=== PATIENT | female | born 1970 | race Caucasian/White ===

== ENCOUNTER 2016-10-21 21:08 | Emergency (ER) | payer OTHER ==
[~2016-10-21] VITALS: Ht 167.6 cm; Wt 75.4 kg
[~2016-10-21 21:08] MED LIST: AMITIZA24 MICROGR PO; BENICAR HCT 201 EACH PO; DESYREL12.5 MG PO; EFFEXOR75 MG PO; FENOFIBRATE40 MG PO; HYDROCHLOROTH12.5 MG PO; KEFLEX500 MG PO; METHADONE 22 MG/1 ML PO; METHADOSE10 MG/1 ML PO; MOBIC15 MG PO; NAPROXEN500 M2 PO; PREDNISONE10 MG PO; PRISTIQ50 MG PO; PROMETHAZINE HC25 M1 PO; SUBOXONE 8 M1 TABLET SL; ZESTRIL20 MG PO; ZOFRAN ODT4 MG PO; ZOLOFT100 MG PO; ZYRTEC10 M2 PO
[2016-10-21 22:02] LABS: HEMATOCRIT 48.1 % (36.0-46.0); MCH 29.7 PG (29.0-34.0); MCHC 34.3 G/DL (30.0-36.0); MCV 86.5 FL (83-99); MEAN PLAT.VOLUME 8.9 uM^3 (9.5-12.4); PLATELET COUNT 344 K/uL (156-360); RBC DIS.WIDTH-CV 12.4 % (11.8-14.6); RBC DIS.WIDTH-SD 39.3 % (39-53); RED BLOOD COUNT 5.56 M/uL (3.80-5.20); WHITE BLOOD COUNT 10.7 K/uL (4.1-10.2)
[2016-10-21 22:12] LABS: ADD MIUA? YES; BILIRUBIN NEGATIVE; BLOOD SMALL; COLOR YELLOW ((YELLOW)); GLUCOSE (STRIP) NEGATIVE; KETONES NEGATIVE; LEUKOCYTES NEGATIVE; NITRITE NEGATIVE; PROTEIN (STRIP) NEGATIVE; SPECIFIC GRAVITY 1.023 (1.000-1.030); UROBILINOGEN 0.2 MG/DL (0.2-1.0)
[2016-10-21 22:16] LABS: CHLORIDE 103 mEq/L (99-109); POTASSIUM 3.3 mEq/L (3.7-5.4); SODIUM 139 mEq/L (136-147)
[2016-10-21 22:18] LABS: GLUCOSE 165 mg/dL (70-99)
[2016-10-21 22:19] LABS: ANION GAP 13 MEQ/L (2-14)
[2016-10-21 22:20] LABS: TOTAL BILIRUBIN 0.2 mg/dL (0.0-1.0)
[2016-10-21 22:21] LABS: ALKALINE PHOSPHATASE 82 IU/L (3-129)
[2016-10-21 22:22] LABS: GFR ESTIMATE (CALCULATED) > 59 mL/min/
[2016-10-21 22:23] LABS: UREA NITROGEN (BUN) 17 mg/dL (9-23)
[2016-10-21 22:25] LABS: CREATINE KINASE 27 IU/L (1-294)
[2016-10-21 22:32] LABS: QUANTITATIVE HCG < 4.0 MIU/ML
[2016-10-21 22:35] LABS: BACTERIA RARE /HPF; EPITHELIAL CELLS 1+ /HPF; MUCUS TRACE /LPF; UCUL ADDED? NO
[2016-10-21] MEDS ORDERED: INDOCIN50 MG PO (23:18)
[2016-10-22] MEDS ORDERED: SIMVASTATIN20 MG PO (01:01)
[2016-10-22 01:09] VITALS: BP 142/96
== END 2016-10-22 01:11 | disposition home or self-care (01) ==
LOC: EME 21:08
DX: L40.50 Arthropathic psoriasis, unspecified (principal); I10 Essential (primary) hypertension; R53.83 Other fatigue; T38.0X5A Adverse effect of glucocorticoids and synthetic analogues, initial encounter; R73.9 Hyperglycemia, unspecified; R53.1 Weakness; E87.6 Hypokalemia; G89.29 Other chronic pain
CPT/HCPCS: 80053; 81003; 82550; 84702; 85027; 99281; 99285; J1885; J7030

== ENCOUNTER 2016-12-03 20:11 | Emergency (ER) | payer OTHER ==
[~2016-12-03] VITALS: Ht 167.6 cm; Wt 78.3 kg
[~2016-12-03 20:11] MED LIST changes: +INDOCIN50 MG PO; +SIMVASTATIN20 MG PO
[2016-12-03 21:34] LABS: HEMATOCRIT 38.7 % (36.0-46.0); MCHC 33.6 G/DL (30.0-36.0); MCV 89.2 FL (83-99); MEAN PLAT.VOLUME 9.4 uM^3 (9.5-12.4); PLATELET COUNT 305 K/uL (156-360); RBC DIS.WIDTH-SD 39.7 % (39-53); RED BLOOD COUNT 4.34 M/uL (3.80-5.20); WHITE BLOOD COUNT 7.3 K/uL (4.1-10.2)
[2016-12-03 21:35] LABS: CHLORIDE 107 mEq/L (99-109); POTASSIUM 4.3 mEq/L (3.7-5.4); SODIUM 141 mEq/L (136-147)
[2016-12-03 21:37] LABS: GLUCOSE 126 mg/dL (70-99)
[2016-12-03 21:38] LABS: ANION GAP 8 MEQ/L (2-14)
[2016-12-03 21:39] LABS: TOTAL BILIRUBIN 0.1 mg/dL (0.0-1.0)
[2016-12-03 21:41] LABS: ALKALINE PHOSPHATASE 66 IU/L (3-129); GFR ESTIMATE (CALCULATED) > 59 mL/min/
[2016-12-03 21:42] LABS: UREA NITROGEN (BUN) 13 mg/dL (9-23)
[2016-12-03 21:44] LABS: LIPASE 27 U/L (1.0-51.0)
[2016-12-03 21:48] LABS: ADD MIUA? YES; BILIRUBIN NEGATIVE; BLOOD SMALL; COLOR STRAW ((YELLOW)); GLUCOSE (STRIP) NEGATIVE; KETONES NEGATIVE; LEUKOCYTES NEGATIVE; NITRITE NEGATIVE; PROTEIN (STRIP) NEGATIVE; SPECIFIC GRAVITY 1.011 (1.000-1.030); UROBILINOGEN 0.2 MG/DL (0.2-1.0)
[2016-12-03 21:50] LABS: BACTERIA RARE /HPF; EPITHELIAL CELLS RARE /HPF; MUCUS NONE SEEN /LPF; RED BLOOD CELLS NONE SEEN /HPF (0-5); UCUL ADDED? NO; WHITE BLOOD CELLS 0-5 /HPF (0-5)
[2016-12-03] MEDS ORDERED: VOLTAREN 1% GE100 GM TP (22:27)
[2016-12-03] MEDS ORDERED: MEDROL DOSEPAK4 MG PO (22:27)
[2016-12-03 22:56] VITALS: BP 125/74
== END 2016-12-03 23:00 | disposition home or self-care (01) ==
LOC: EME 20:11
PROVIDERS: Physician Assistant
DX: K59.00 Constipation, unspecified (principal); R10.12 Left upper quadrant pain; M17.11 Unilateral primary osteoarthritis, right knee; Z90.49 Acquired absence of other specified parts of digestive tract; I10 Essential (primary) hypertension; F17.200 Nicotine dependence, unspecified, uncomplicated
CPT/HCPCS: 73564; 80053; 81003; 83690; 85027; 99281; 99285

== ENCOUNTER 2017-04-20 13:01 | Emergency (ER) | payer OTHER ==
[~2017-04-20] VITALS: Ht 167.6 cm; Wt 73.9 kg
[~2017-04-20 13:01] MED LIST changes: +MEDROL DOSEPAK4 MG PO; +VOLTAREN 1% GE100 GM TP
[2017-04-20 13:29] VITALS: BP 136/111
== END 2017-04-20 13:38 | disposition left against medical advice (07) ==
LOC: EME 13:01
DX: R51 Headache (principal); M79.89 Other specified soft tissue disorders; Z53.21 Procedure and treatment not carried out due to patient leaving prior to being seen by health care provider